=== PATIENT | female | born 1995 | race Caucasian/White ===

== ENCOUNTER 2020-03-10 06:53 | Emergency (ER) | payer BC, OTHER ==
[~2020-03-10] VITALS: Ht 167.6 cm; Wt 163.1 kg
[2020-03-10 06:53] VITALS: BP 159/99
[2020-03-10] MEDS ORDERED: BENZ-52 (07:04)
[2020-03-10] MEDS ORDERED: PRAZ2CAP (07:04)
[2020-03-10] MEDS ORDERED: LARI1TAB5 (07:04)
[2020-03-10] MEDS ORDERED: RISP-9 (07:04)
[2020-03-10] MEDS ORDERED: GABA800T4 (07:04)
[2020-03-10] MEDS ORDERED: OMEP-218 (07:04)
[2020-03-10] MEDS ORDERED: FLUO20CA22 (07:04)
[2020-03-10] MEDS ORDERED: VIVI380I (07:04)
[2020-03-10] MEDS ORDERED: BUPR300T92 (07:04)
[2020-03-10] MEDS ORDERED: LAMO100T3 (07:04)
[2020-03-10] MEDS ORDERED: DIPH50CA29 (07:04)
[2020-03-10] MEDS ORDERED: ONDANSETRON 4 MG ORAL DISINTEGRATING TAB PO ONE (07:30)
--- NOTE | 2020-03-10 07:37 | REPVR ---
PROCEDURE INFORMATION: Exam: CT Head Without Contrast Exam date and time: 03/10/2020 7:24 AM Age: 24 years old Clinical indication: Injury or trauma; Fall; Blunt trauma (contusions or hematomas); Consciousness not specified; Additional info: Fall with memory loss, nausea TECHNIQUE: Imaging protocol: Computed tomography of the head without contrast. Radiation optimization: All CT scans at this facility use at least one of these dose optimization techniques: automated exposure control; mA and/or kV adjustment per patient size (includes targeted exams where dose is matched to clinical indication); or iterative reconstruction. COMPARISON: No relevant prior studies available. FINDINGS: Brain: No hemorrhage. Unremarkable white matter. No mass effect. Cerebral ventricles: No ventriculomegaly. Bones/joints: No acute fracture. Paranasal sinuses: Visualized sinuses are unremarkable. No fluid levels. Mastoid air cells: Visualized mastoid air cells are well aerated. Soft tissues: Unremarkable. IMPRESSION: No acute intracranial abnormality. Electronically signed by: Kevin Moya On 03/10/2020 07:38:04 AM
== END 2020-03-10 07:54 | disposition home or self-care (01) ==
LOC: M ED 06:53
DX: S09.90XA Unspecified injury of head, initial encounter (principal); W00.0XXA Fall on same level due to ice and snow, initial encounter; Y92.89 Other specified places as the place of occurrence of the external cause; Y99.0 Civilian activity done for income or pay; F33.9 Major depressive disorder, recurrent, unspecified; F41.9 Anxiety disorder, unspecified; K21.9 Gastro-esophageal reflux disease without esophagitis; Z79.899 Other long term (current) drug therapy; Z88.1 Allergy status to other antibiotic agents; Z88.2 Allergy status to sulfonamides
CPT/HCPCS: 70450; 99282; Q0162